=== PATIENT | male | born 1935 | race Caucasian/White ===

== ENCOUNTER 2016-12-07 21:40 | Inpatient (IN) | payer MEDICARE ==
[2016-12-07 21:59] LABS: % BASOPHILS 0.1 % (0.0-2.0); % EOSINOPHILS 0.4 % (0.0-5.0); % LYMPHOCYTES 4.9 % (20.0-50.0); % MONOCYTES 9.2 % (2.0-10.0); % NEUTROPHILS 85.4 % (40.0-80.0); HEMATOCRIT 41.3 % (39.0-49.0); HEMOGLOBIN 13.9 gm/dL (12.6-17.4); MEAN CELL VOLUME 91.7 fl (80-99); MEAN CORPUSCULAR HEMOGLOBIN 30.7 pg (27.0-31.0); MEAN CORPUSCULAR HGB CONC 33.5 pg (28.0-36.0); MEAN PLATELET VOLUME 9.9 fl; NEUTROPHILE ABSOLUTE 12.8 Th/cmm (1.8-8.0); PLATELET COUNT 324 Th/cmm (150-400); RED BLOOD COUNT 4.51 Mil/cmm (3.80-5.80); RED CELL DISTRIBUTION WIDTH 12.5 % (11.5-20.0)
[2016-12-07 22:14] LABS: INR 1.03 (0.5-1.4); PROTHROMBIN TIME (TEST) 10.7 SECONDS (9.5-11.5)
[2016-12-07 22:17] LABS: ALB/GLOB RATIO 0.9 (1.0-1.8); ALKALINE PHOSPHATASE 71 U/L (34-104); ANION GAP 10.4 (7.0-16.0); BILIRUBIN,TOTAL 0.9 mg/dL (0.3-1.0); BUN - UREA NITROGEN 36 mg/dL (7-25); BUN/CREATININE RATIO 32.7; CALCIUM SERUM 9.9 mg/dL (8.6-10.3); CARBON DIOXIDE 25.2 mEq/L (21.0-31.0); CHLORIDE 108 mEq/L (98-107); CHOLESTEROL 125 mg/dL (<200); CREATININE - SERUM 1.1 mg/dL (0.7-1.3); GLUCOSE 142 mg/dL (70-105); POTASSIUM SERUM 3.6 mEq/L (3.5-5.1); SGOT 20 U/L (13-39); SGPT/ALT 18 U/L (7-52); SODIUM SERUM 140 mEq/L (136-145); TRIGLYCERIDES 77 mg/dL (<150)
[2016-12-07] MEDS ORDERED: cefTRIAXone 1 GM in Sodium Chloride 0.9% 50 ML IV ONE (22:17)
--- NOTE | 2016-12-07 22:24 | ED Physician Chart ---
Chief Complaint/HPI - Patient Information Date Seen:: 12/07/16 Time Seen:: 21:45 Chief Complaint:: CONFUSED History of Present Illness:: THIS IS A CHRONICALLY ILL 81 YO MALE WITH FAILURE TO THRIVE AND FEVER INTERMITTENT PERIODS OF CONFUSION. HE IS DEMENTED WITH HYPERTENSION AND MELANOMA. HE IS ALSO COUGHING WITH CONGESTION. Allergies:: Allergies Allergy/AdvReac Type Severity Reaction Status Date / Time No Known Allergies Allergy Verified 12/07/16 21:52 Vitals:: Vital Signs - 8 hr 12/07/16 21:45 Temp 99 F HR 99 RR 18 BP 131/86 O2 Sat % 94 Historian:: Medical Records Review:: Nurse's Note Reviewed, Transfer documents Reviewed Review of Systems - Review of Systems General/Constitutional: No fever, No chills, No weight loss, No weakness, No diaphoresis, No edema, No loss of appetite, Other (THIS PATIENT CANNOT GIVE A REVIEW OF SYSTEMS) Skin: No skin lesions, No rash, No bruising Head: No headache, No light-headedness Eyes: No loss of vision, No pain, No diplopia ENT: No earache, No nasal drainage, No sore throat, No tinnitus Neck: No neck pain, No swelling, No thyromegaly, No stiffness, No mass noted Cardio Vascular: No chest pain, No palpitations, No PND, No orthopnea, No edema Pulmonary: No SOB, No cough, No sputum, No wheezing GI: No nausea, No vomiting, No diarrhea, No pain, No melena, No hematochezia, No constipation, No hematemesis G/U: No dysuria, No frequency, No hematuria Musculoskeletal: No bone or joint pain, No back pain, No muscle pain Endocrine: No polyuria, No polydipsia Psychiatric: No prior psych history, No depression, No anxiety, No suicidal ideation Hematopoietic: No bruising, No lymphadenopathy Allergic/Immuno: No urticaria, No angioedema Neurological: No syncope, No focal symptoms, No weakness, No paresthesia, No headache, No seizure, No dizziness, No confusion, No vertigo Past Medical History - Past Medical History Obtainable: Yes Past Medical History: HTN, Asthma/COPD, CVA/TIA, Dyslipidemia, Dementia Family History: None Social History: Non Smoker, No Alcohol, No Drug Use, Care Facility Surgical History: None Psychiatricy History: Depression, Schizophrenia Medication: Reviewed Family Medical History - Family Member Mother History Unknown: Yes Physical Exam - Physical Examination General/Constitutional: Well-developed, well-nourished, No distress, GCS 15, Non -toxic appearing, Ambulatory Other Gen/Cons comments:: THIS PATIENT IS CONFUSED AND DISORIENTED TIMES FOUR. Head: Atraumatic Eyes: Lids, conjuctiva normal, PERRL, EOMI Skin: Nl inspection, No rash, No skin lesions, No ecchymosis, Well hydrated, No lymphadenopathy ENMT: External ears, nose nl, Nasal exam nl, Lips, teeth, gums nl Neck: Nontender, Full ROM w/o pain, No JVD, No nuchal rigidity, No bruit, No mass, No stridor Respiratory: Nl effort/Exclusion, Clear to Auscultation Other Respiratory comments:: THERE ARE BILATERAL RHONCHITIS Cardio Vascular: RRR, No murmur, gallop, rubs, NL S1 S2 GI: No tenderness/rebounding/guarding, No organomegaly, No hernia, Normal BS's, Nondistended, No mass/bruits, No McBurney tenderness : No CVA tenderness Extremities: No tenderness or effusion, Full ROM, normal strength in all extremities, No edema, Normal digits & nails Neuro/Psych: Alert/oriented, DTR's symmetric, Normal sensory exam, Normal motor strength, Judgement/insight normal, Mood normal, Normal gait, No focal deficits Misc: normal gait, Normal back, No paraspinal tenderness Labs/Radiology/EKG Results - Lab Results Results: Laboratory Tests 12/07/16 12/07/16 21:53 21:53 WBC 15.0 H RBC 4.51 Hgb 13.9 Hct 41.3 MCV 91.7 MCH 30.7 MCHC Differential 33.5 RDW 12.5 Plt Count 324 MPV 9.9 Neutrophils % 85.4 H Lymphocytes % 4.9 L Monocytes % 9.2 Eosinophils % 0.4 Basophils % 0.1 PT 10.7 INR 1.03 - Radiology Results Results: CHEST X-RAY = INTERSTIAL PATCHES - EKG Interpretations EKG Time:: 22:34 Rate & Rhythm: RATE= 92 SINUS [place]: LEFT AXIS Assessment - Assessment General Assessment: LEUCOCYTOSIS FEVER CONFUSION ED Septic Shock - . Is Septic Shock (SBP<90, OR Lactate>4 mmol\L) present?: No - <6hrs of presentation: Vital Signs: Vital Signs - 8 hr 12/07/16 21:45 Temp 99 F HR 99 RR 18 BP 131/86 O2 Sat % 94 Reassessment (Disposition) - Reassessment Reassessment Condition:: Unchanged - Diagnosis Diagnosis:: PNUEMONIA CONFUSION FEVER - Patient Disposition Discharge/Transfer:: Acute Care w/in this hosp Admitted to:: Med/Surg Admitting Medical Physician:: Alan De La Cruz Condition at Disposition:: Unchanged ED Discharge Plan - Patient Disposition Admit/Discharge/Transfer: Acute Care w/in this hosp Condition at Disposition: Improved Instructions: Psychosis
[2016-12-07] MEDS ORDERED: Sodium Chloride 0.45% 500 ML IV ONE (22:35)
[2016-12-08] MEDS ORDERED: Vancomycin HCl 1.5 GM in Sodium Chloride 0.9% 500 ML IV ONE (03:00)
[2016-12-08] MEDS ORDERED: Piperacillin Sodium/Tazobact 3.375 gm Vial IV ONE (04:23)
[2016-12-08 04:40] VITALS: BP 159/92
[2016-12-08] MEDS: Albuterol/Ipratropium Neb 3 ML AERS HHN SCH ×3 (07:33→18:49)
[2016-12-08 07:37] LABS: HEMATOCRIT 39.4 % (39.0-49.0); HEMOGLOBIN 13.1 gm/dL (12.6-17.4); MEAN CELL VOLUME 91.6 fl (80-99); MEAN CORPUSCULAR HEMOGLOBIN 30.4 pg (27.0-31.0); MEAN CORPUSCULAR HGB CONC 33.1 pg (28.0-36.0); MEAN PLATELET VOLUME 10.1 fl; PLATELET COUNT 279 Th/cmm (150-400); RED CELL DISTRIBUTION WIDTH 12.7 % (11.5-20.0)
[2016-12-08 07:45] LABS: ALB/GLOB RATIO 0.8 (1.0-1.8); ALKALINE PHOSPHATASE 62 U/L (34-104); ANION GAP 7.2 (7.0-16.0); BILIRUBIN,TOTAL 0.7 mg/dL (0.3-1.0); BUN - UREA NITROGEN 30 mg/dL (7-25); BUN/CREATININE RATIO 27.3; CALCIUM SERUM 9.6 mg/dL (8.6-10.3); CARBON DIOXIDE 27.6 mEq/L (21.0-31.0); CHLORIDE 111 mEq/L (98-107); CREATININE - SERUM 1.1 mg/dL (0.7-1.3); GLUCOSE 113 mg/dL (70-105); POTASSIUM SERUM 3.8 mEq/L (3.5-5.1); SGOT 17 U/L (13-39); SGPT/ALT 14 U/L (7-52); SODIUM SERUM 142 mEq/L (136-145)
--- NOTE | 2016-12-08 08:42 | Diagnostic Imaging Report ---
CHEST X-RAY: AP view INDICATION: Congestion COMPARISON: None FINDINGS: Suboptimal lung volumes are seen with left basal density. Cardiomegaly is noted. Degenerative changes of the spine are noted. Postsurgical changes of the right lung apex or base of the neck on the right side is noted. IMPRESSION: Suboptimal lung volumes and left basal density. Atelectasis versus infiltrate of the left lung base cannot be excluded. Follow-up recommended. Cardiomegaly.
[2016-12-08 08:45] LABS: WHITE BLOOD COUNT 13.2 Th/cmm (4.8-10.8)
--- NOTE | 2016-12-08 09:27 | Diagnostic Imaging Report ---
CHEST X-RAY: AP view INDICATION: pneumonia COMPARISON: 12/07/2016 FINDINGS: Left basal increased lung markings are noted. There may be a trace left effusion. Borderline prominent heart is noted. IMPRESSION: Increased left basal lung markings favoring atelectasis versus less likely infiltrate. There may be a trace left effusion.
[2016-12-08 10:39] LABS: TOTAL CELLS COUNTED 100
[2016-12-08 10:41] LABS: NEUTROPHILS 82 % (40-80)
[2016-12-08 10:42] LABS: PLATELET ESTIMATE ADEQUATE (NORMAL); PLATELET MORPHOLOGY NORMAL (NORMAL)
[2016-12-08] MEDS ORDERED: VTE Chemical Prophylaxis Screen/Admission MC PRN (11:45)
[2016-12-08 13:56] LABS: URINE BILIRUBIN NEGATIVE (NEGATIVE); URINE BLOOD SMALL (NEGATIVE); URINE COLOR YELLOW; URINE GLUCOSE (UA) NEGATIVE (NEGATIVE); URINE KETONE NEGATIVE (NEGATIVE); URINE PROTEIN NEGATIVE (NEGATIVE)
[2016-12-08 13:57] LABS: URINE BACTERIA FEW /hpf (NONE SEEN); URINE EPITHELIAL CELLS RARE /lpf (FEW); URINE URIC ACID CRYSTALS FEW /hpf (NONE SEEN); URINE UROBILINOGEN 0.2 E.U./dL (0.2 - 1.0); URINE WBC 0-2 /hpf (0-5)
[2016-12-08] MEDS ORDERED: Albuterol/Ipratropium Neb 3 ML AERS HHN PRN (16:45)
[2016-12-08] MEDS: Azithromycin 500 MG in Sodium Chloride 0.9% 250 ML IV SCH (18:41)
--- NOTE | 2016-12-08 18:57 | History & Physical ---
ADMIT DATE: 12/08/2016 PATIENT IDENTIFICATION: An 81-year-old male. CHIEF COMPLAINT: Unable to obtain. HISTORY SOURCE: Reviewing the chart, talking to the Emergency Room MD. HISTORY OF PRESENT ILLNESS: This is an 81-year-old male who was admitted at [facility] on 12/03/2016 with a diagnosis of dementia, altered mental status and a fall. The patient was recently treated at [facility] for pneumonia as well. According to the Emergency Room MD, he was sent to ER for evaluation of confusion, disorientation and refused to eat and drink for 2 days. Upon my assessment, it is noted that the patient does provide a meaningful history at this time. The patient states that he is thirsty and he wants to eat and drink. The patient has some cough and congestion. The patient does have a history of hypertension and melanoma. The patient was taking medication at [facility], amlodipine for his hypertension. REVIEW OF SYSTEMS: The patient currently denies any fever or chills. Denies any headache. Denies any chest pain, denies any shortness of breath, denies any abdominal pain. Denies any nausea, vomiting, diarrhea, hematuria, hematochezia or melena. No history of any seizure or syncopal episode. PHYSICAL EXAMINATION: GENERAL: The patient is alert, awake, oriented, lying in the bed without any acute distress. VITAL SIGNS: Temperature 98.2, pulse is 80, respiratory rate 18, blood pressure 147/84. HEENT: Normocephalic, atraumatic. Extraocular muscles are intact. Tongue was pink and dry. Upper lip, black lesion noted. No facial asymmetry. NECK: Supple. Carotid endarterectomy scar on the right side noted. No JVD, no lymphadenopathy, thyromegaly. HEART: Both heart sounds are regular. No S3, no S4. CHEST AND LUNGS: Equal in expansion with mild expiratory wheezing. ABDOMEN: Soft. No guarding, no rigidity. Bowel sounds are present. No palpable mass. EXTREMITIES: No edema, no cyanosis. Peripheral pulses are +1. No calf tenderness. NEUROLOGIC: The patient is alert, awake, following commands, moving upper and lower extremity. The patient does epinephrine as of agitations. AVAILABLE DIAGNOSTIC DATA: White count of 15, hemoglobin of 13.9, platelet count of 1324, 85.4% neutrophils. PT and PTT are normal. Sodium 140, potassium 3.6, chloride 108, CO2 ____, BUN and creatinine is 36 and 1.0. Glucose of 142. Liver functions are normal. Albumin of 3.5. Urinalysis is small blood, otherwise negative. RPR was unremarkable. Chest x-ray performed in the Emergency Room, which is read by Radiologist as suboptimal volume, left basal density, atelectasis versus infiltrate of the left lung. EKG, no ST-T changes representing acute ischemia. CLINICAL IMPRESSIONS: 1. Cough, congestion, left lower lobe atelectasis versus infiltrate; recently treated for pneumonia at [facility]. The patient has dementia history. Though the patient gives me history, I am concerned about possible aspiration versus community acquired. The patient needs to be treated, since the patient is still having symptoms. 2. Agitations. Confusion and disorientation. The patient does have underlying dementia. I do believe the patient has encephalopathy, which is causing him to have irritation as well as disorientation. 3. Alzheimer's type dementia. 4. Hypertension. 5. Degenerative joint disease. 6. Peripheral vascular disease. 7. Prerenal azotemia. 8. Mild protein calorie malnutrition. 9. Recently treated for urinary tract infection as per patient's assigned nurse who talked to the patient's friend. PLAN: The patient is admitted at this time to the medical floor. I will give him hydration, will do swallow evaluation and treat the patient. Also give Zosyn and IV azithromycin for pneumonia, which includes aspiration, [facility] acquired as well as community acquired, blood cultures x 2, sputum Gram stain, C and S will be obtained. Psych consult was requested. appropriate home medicine will be reconciled. I will also get the CT chest for better evaluation of his left lower lobe atelectasis versus infiltrate. Since the patient has agitation, I will hold psychotropic medications and use Ativan p.r.n. and a one-to-one sitter. Followup lab will be requested and will follow program evaluation consultant's recommendations. Care plan has been reviewed and discussed with staff. JOB# [id number]
[2016-12-09 06:09] LABS: HEMATOCRIT 36.3 % (39.0-49.0); HEMOGLOBIN 12.4 gm/dL (12.6-17.4); MEAN CELL VOLUME 91.1 fl (80-99); MEAN PLATELET VOLUME 10.4 fl; PLATELET COUNT 285 Th/cmm (150-400); RED BLOOD COUNT 3.99 Mil/cmm (3.80-5.80); RED CELL DISTRIBUTION WIDTH 12.2 % (11.5-20.0); WHITE BLOOD COUNT 11.7 Th/cmm (4.8-10.8)
[2016-12-09 06:21] LABS: ALB/GLOB RATIO 0.9 (1.0-1.8); ALKALINE PHOSPHATASE 56 U/L (34-104); ANION GAP 8.9 (7.0-16.0); BILIRUBIN,TOTAL 0.7 mg/dL (0.3-1.0); BUN - UREA NITROGEN 21 mg/dL (7-25); CALCIUM SERUM 9.1 mg/dL (8.6-10.3); CARBON DIOXIDE 26.4 mEq/L (21.0-31.0); CHLORIDE 111 mEq/L (98-107); GLUCOSE 105 mg/dL (70-105); POTASSIUM SERUM 3.3 mEq/L (3.5-5.1); SGOT 15 U/L (13-39); SGPT/ALT 12 U/L (7-52); SODIUM SERUM 143 mEq/L (136-145)
[2016-12-09] MEDS: Albuterol/Ipratropium Neb 3 ML AERS HHN SCH ×3 (07:02→18:58)
[2016-12-09 07:16] LABS: BAND NEUTROPHILE 3 % (0-10); NEUTROPHILS 82 % (40-80); PLATELET ESTIMATE ADEQUATE (NORMAL); TOTAL CELLS COUNTED 100
[2016-12-09] MEDS: Azithromycin 500 MG in Sodium Chloride 0.9% 250 ML IV SCH (17:16)
[2016-12-10] MEDS: Albuterol/Ipratropium Neb 3 ML AERS HHN SCH ×4 (01:06→18:38)
--- NOTE | 2016-12-10 13:16 | General Progress Note ---
Subjective - Review of Systems Subjective: Patient is seen and examined. Patient is incontinence of urine. Patient is very alert and awake. I do see some period of agitation during my interview with him. I still think patient may get benefit with psych evaluation and possible geropsychiatric admission. Patient denies any chest pain, shortness of breath, palpitation, dizziness, nausea, vomiting, headache. Patient has not walked yet. Objective - Results Result Diagrams: 12/09/16 05:35 12/09/16 05:35 Recent Labs: Laboratory Last Values WBC 11.7 Th/cmm (4.8-10.8) H 12/09/16 05:35 RBC 3.99 Mil/cmm (3.80-5.80) 12/09/16 05:35 Hgb 12.4 gm/dL (12.6-17.4) L 12/09/16 05:35 Hct 36.3 % (39.0-49.0) L 12/09/16 05:35 MCV 91.1 fl (80-99) 12/09/16 05:35 MCH 31.0 pg (27.0-31.0) 12/09/16 05:35 MCHC Differential 34.0 pg (28.0-36.0) 12/09/16 05:35 RDW 12.2 % (11.5-20.0) 12/09/16 05:35 Plt Count 285 Th/cmm (150-400) 12/09/16 05:35 MPV 10.4 fl 12/09/16 05:35 Neutrophils % 85.4 % (40.0-80.0) H 12/07/16 21:53 Band Neutrophils % 3 % (0-10) 12/09/16 05:35 Lymphocytes % 4.9 % (20.0-50.0) L 12/07/16 21:53 Monocytes % 9.2 % (2.0-10.0) 12/07/16 21:53 Eosinophils % 0.4 % (0.0-5.0) 12/07/16 21:53 Basophils % 0.1 % (0.0-2.0) 12/07/16 21:53 Neutrophils (Manual) 82 % (40-80) H 12/09/16 05:35 Lymphocytes 6 % (20-50) L 12/09/16 05:35 Monocytes 9 % (2-10) 12/09/16 05:35 Platelet Estimate ADEQUATE (NORMAL) 12/09/16 05:35 Platelet Morphology NORMAL (NORMAL) 12/08/16 06:57 RBC Morph Micro Appear NORMAL (NORMAL) 12/08/16 06:57 PT 10.7 SECONDS (9.5-11.5) 12/07/16 21:53 INR 1.03 (0.5-1.4) 12/07/16 21:53 Sodium 143 mEq/L (136-145) 12/09/16 05:35 Potassium 3.3 mEq/L (3.5-5.1) L 12/09/16 05:35 Chloride 111 mEq/L (98-107) H 12/09/16 05:35 Carbon Dioxide 26.4 mEq/L (21.0-31.0) 12/09/16 05:35 Anion Gap 8.9 (7.0-16.0) 12/09/16 05:35 BUN 21 mg/dL (7-25) 12/09/16 05:35 Creatinine 1.0 mg/dL (0.7-1.3) 12/09/16 05:35 Est GFR ( Amer) TNP 12/09/16 05:35 Est GFR (Non-Af Amer) TNP 12/09/16 05:35 BUN/Creatinine Ratio 21.0 12/09/16 05:35 Glucose 105 mg/dL (70-105) 12/09/16 05:35 Whole Bld Lactic Acid 0.99 mmol/L (0.60-1.99) 12/07/16 21:53 Calcium 9.1 mg/dL (8.6-10.3) 12/09/16 05:35 Total Bilirubin 0.7 mg/dL (0.3-1.0) 12/09/16 05:35 AST 15 U/L (13-39) 12/09/16 05:35 ALT 12 U/L (7-52) 12/09/16 05:35 Alkaline Phosphatase 56 U/L (34-104) 12/09/16 05:35 Troponin I 0.03 ng/mL (0.01-0.05) 12/07/16 21:53 Total Protein 6.4 gm/dL (6.0-8.3) 12/09/16 05:35 Albumin 3.0 gm/dL (4.2-5.5) L 12/09/16 05:35 Globulin 3.4 gm/dL 12/09/16 05:35 Albumin/Globulin Ratio 0.9 (1.0-1.8) L 12/09/16 05:35 Triglycerides 77 mg/dL (<150) 12/07/16 21:53 Cholesterol 125 mg/dL (<200) 12/07/16 21:53 LDL Cholesterol Direct 89 mg/dL (75-193) 12/07/16 21:53 HDL Cholesterol 30 mg/dL (23-92) 12/07/16 21:53 TSH 1.38 uIU/ml (0.34-5.60) 12/07/16 21:53 Urine Source CLEAN C 12/08/16 13:30 Urine Color YELLOW 12/08/16 13:30 Urine Clarity CLEAR (CLEAR) 12/08/16 13:30 Urine pH 6.0 (4.6 - 8.0) 12/08/16 13:30 Ur Specific [place] 1.025 (1.005-1.030) 12/08/16 13:30 Urine Protein NEGATIVE mg/dL (NEGATIVE) 12/08/16 13:30 Urine Glucose (UA) NEGATIVE mg/dL (NEGATIVE) 12/08/16 13:30 Urine Ketones NEGATIVE mg/dL (NEGATIVE) 12/08/16 13:30 Urine Blood SMALL (NEGATIVE) H 12/08/16 13:30 Urine Nitrate NEGATIVE (NEGATIVE) 12/08/16 13:30 Urine Bilirubin NEGATIVE (NEGATIVE) 12/08/16 13:30 Urine Urobilinogen 0.2 E.U./dL (0.2 - 1.0) 12/08/16 13:30 Ur Leukocyte Esterase NEGATIVE (NEGATIVE) 12/08/16 13:30 Urine RBC 2-5 /hpf (0-5) H 12/08/16 13:30 Urine WBC 0-2 /hpf (0-5) 12/08/16 13:30 Ur Epithelial Cells RARE /lpf (FEW) 12/08/16 13:30 Uric Acid Crystals FEW /hpf (NONE SEEN) 12/08/16 13:30 Urine Bacteria FEW /hpf (NONE SEEN) 12/08/16 13:30 RPR NONREACTIVE (NONREACTIVE) 12/07/16 21:53 - Physical Exam Vitals and I&O: Vital Signs Temp 97.3 F 12/10/16 12:00 Pulse 65 12/10/16 12:26 Resp 16 12/10/16 12:26 BP 150/68 12/10/16 12:00 Pulse Ox 95 12/10/16 12:26 Intake & Output 12/09/16 12/10/16 12/10/16 18:59 06:59 18:59 Intake Total 1900 100 Balance 1900 100 Weight (lbs) 76.884 kg 77.428 kg Intake: Intake, IV Amount 50 100 Piperacillin Sodium/ 50 100 Tazobact 3.375 gm In Sodium Chloride 0.9% 50 ml @ 100 mls/hr IV Q8HR [facility] Rx#:[id number] Oral 1850 Other: # Voids 4 2 # Bowel Movements 1 1 Stool Characteristics Soft Formed Active Medications: Current Medications Albuterol/Ipratropium (Duoneb Neb) 3 ml HHN Q6HRT [facility] Stop: 02/06/17 06:59 Last Admin: 12/10/16 12:19 Dose: 3 ml Albuterol/Ipratropium (Duoneb Neb) 3 ml HHN Q2H PRN PRN Reason: Wheezing Stop: 02/06/17 16:44 Amlodipine Besylate (Norvasc) 10 mg PO DAILY [facility] Stop: 02/07/17 08:59 Last Admin: 12/10/16 08:30 Dose: 10 mg Heparin Sodium (Porcine) (Heparin) 5,000 units SUBQ Q12HR [facility] Stop: 02/06/17 20:59 Last Admin: 12/10/16 08:30 Dose: 5,000 units Piperacillin Sod/Tazobactam (Sod 3.375 gm/ Sodium Chloride) 50 mls @ 100 mls/ hr IV Q8HR [facility] Stop: 02/06/17 01:54 Last Admin: 12/10/16 12:28 Dose: 100 mls/hr Azithromycin 500 mg/ Sodium (Chloride) 250 mls @ 250 mls/hr IV Q24HR [facility] Stop: 02/06/17 17:29 Last Admin: 12/09/16 17:16 Dose: 250 mls/hr Lorazepam (Ativan) 2 mg IVP Q4HR PRN; Protocol PRN Reason: Agitation Stop: 02/06/17 16:41 Miscellaneous (Vte Chemical Prophylaxis Screen/ Admission) 1 ea PRN PRN PRN Reason: PROTOCOL Stop: 02/06/17 11:44 General: Alert, Cooperative, No acute distress HEENT: Atraumatic, PERRLA, EOMI, Mucous membr. moist/pink Neck: Supple, Other (no JVD, thyromegaly, lymphadenopathy.) Cardiovascular: Regular rate, Normal S1, Normal S2 Lungs: Clear to auscultation Abdomen: Bowel sounds, Soft, Other (no guarding, rigidity, hepatosplenomegaly.) Extremities: Pulses (+1) Neurological: Other (broadbase gait noted.) Assessment/Plan - Assessment Assessment: Most likely underlying Alzheimer's dementia. Left lower lobe pneumonia. Hypertension. Diffuse DJD. High risk for fall. Debility. History of CVA. Altered mental status secondary to encephalopathy improved. - Plan Plan: Start PT OT. IV antibiotic. Await psych input. Follow-up precautions. General nursing care. Nutritional support. Continue current medication as ordered. Care plan reviewed and discussed with staff.
[2016-12-10] MEDS: Azithromycin 500 MG in Sodium Chloride 0.9% 250 ML IV SCH (16:30)
[2016-12-11] MEDS: Albuterol/Ipratropium Neb 3 ML AERS HHN SCH ×8 (00:26→18:54)
[2016-12-11 06:07] LABS: % BASOPHILS 0.5 % (0.0-2.0); % EOSINOPHILS 3.2 % (0.0-5.0); % LYMPHOCYTES 11.2 % (20.0-50.0); % MONOCYTES 11.5 % (2.0-10.0); % NEUTROPHILS 73.6 % (40.0-80.0); HEMATOCRIT 36.6 % (39.0-49.0); HEMOGLOBIN 12.1 gm/dL (12.6-17.4); MEAN CELL VOLUME 91.1 fl (80-99); MEAN CORPUSCULAR HEMOGLOBIN 30.2 pg (27.0-31.0); MEAN CORPUSCULAR HGB CONC 33.1 pg (28.0-36.0); MEAN PLATELET VOLUME 9.8 fl; NEUTROPHILE ABSOLUTE 6.7 Th/cmm (1.8-8.0); PLATELET COUNT 289 Th/cmm (150-400); RED BLOOD COUNT 4.02 Mil/cmm (3.80-5.80); RED CELL DISTRIBUTION WIDTH 12.2 % (11.5-20.0)
[2016-12-11 06:38] LABS: ALB/GLOB RATIO 0.8 (1.0-1.8); ALKALINE PHOSPHATASE 61 U/L (34-104); ANION GAP 7.8 (7.0-16.0); BILIRUBIN,TOTAL 0.5 mg/dL (0.3-1.0); BUN - UREA NITROGEN 11 mg/dL (7-25); CALCIUM SERUM 9.1 mg/dL (8.6-10.3); CARBON DIOXIDE 26.5 mEq/L (21.0-31.0); CHLORIDE 105 mEq/L (98-107); GLUCOSE 103 mg/dL (70-105); POTASSIUM SERUM 3.3 mEq/L (3.5-5.1); SGOT 16 U/L (13-39); SGPT/ALT 10 U/L (7-52); SODIUM SERUM 136 mEq/L (136-145)
--- NOTE | 2016-12-11 09:15 | General Progress Note ---
Subjective - Review of Systems Subjective: Patient is seen and examined. Patient denies any chest pain, shortness of breath, palpitation, dizziness, nausea, vomiting. She knows he was admitted at [place] followed by [facility]. Patient is not seen by psychiatrist yet. Objective - Results Result Diagrams: 12/11/16 06:00 12/11/16 06:00 Recent Labs: Laboratory Last Values WBC 9.0 Th/cmm (4.8-10.8) D 12/11/16 06:00 RBC 4.02 Mil/cmm (3.80-5.80) 12/11/16 06:00 Hgb 12.1 gm/dL (12.6-17.4) L 12/11/16 06:00 Hct 36.6 % (39.0-49.0) L 12/11/16 06:00 MCV 91.1 fl (80-99) 12/11/16 06:00 MCH 30.2 pg (27.0-31.0) 12/11/16 06:00 MCHC Differential 33.1 pg (28.0-36.0) 12/11/16 06:00 RDW 12.2 % (11.5-20.0) 12/11/16 06:00 Plt Count 289 Th/cmm (150-400) 12/11/16 06:00 MPV 9.8 fl 12/11/16 06:00 Neutrophils % 73.6 % (40.0-80.0) 12/11/16 06:00 Band Neutrophils % 3 % (0-10) 12/09/16 05:35 Lymphocytes % 11.2 % (20.0-50.0) L 12/11/16 06:00 Monocytes % 11.5 % (2.0-10.0) H 12/11/16 06:00 Eosinophils % 3.2 % (0.0-5.0) 12/11/16 06:00 Basophils % 0.5 % (0.0-2.0) 12/11/16 06:00 Neutrophils (Manual) 82 % (40-80) H 12/09/16 05:35 Lymphocytes 6 % (20-50) L 12/09/16 05:35 Monocytes 9 % (2-10) 12/09/16 05:35 Platelet Estimate ADEQUATE (NORMAL) 12/09/16 05:35 Platelet Morphology NORMAL (NORMAL) 12/08/16 06:57 RBC Morph Micro Appear NORMAL (NORMAL) 12/08/16 06:57 PT 10.7 SECONDS (9.5-11.5) 12/07/16 21:53 INR 1.03 (0.5-1.4) 12/07/16 21:53 Sodium 136 mEq/L (136-145) 12/11/16 06:00 Potassium 3.3 mEq/L (3.5-5.1) L 12/11/16 06:00 Chloride 105 mEq/L (98-107) 12/11/16 06:00 Carbon Dioxide 26.5 mEq/L (21.0-31.0) 12/11/16 06:00 Anion Gap 7.8 (7.0-16.0) 12/11/16 06:00 BUN 11 mg/dL (7-25) 12/11/16 06:00 Creatinine 1.0 mg/dL (0.7-1.3) 12/11/16 06:00 Est GFR ( Amer) TNP 12/11/16 06:00 Est GFR (Non-Af Amer) TNP 12/11/16 06:00 BUN/Creatinine Ratio 11.0 12/11/16 06:00 Glucose 103 mg/dL (70-105) 12/11/16 06:00 Whole Bld Lactic Acid 0.99 mmol/L (0.60-1.99) 12/07/16 21:53 Calcium 9.1 mg/dL (8.6-10.3) 12/11/16 06:00 Total Bilirubin 0.5 mg/dL (0.3-1.0) 12/11/16 06:00 AST 16 U/L (13-39) 12/11/16 06:00 ALT 10 U/L (7-52) 12/11/16 06:00 Alkaline Phosphatase 61 U/L (34-104) 12/11/16 06:00 Troponin I 0.03 ng/mL (0.01-0.05) 12/07/16 21:53 Total Protein 6.4 gm/dL (6.0-8.3) 12/11/16 06:00 Albumin 2.9 gm/dL (4.2-5.5) L 12/11/16 06:00 Globulin 3.5 gm/dL 12/11/16 06:00 Albumin/Globulin Ratio 0.8 (1.0-1.8) L 12/11/16 06:00 Triglycerides 77 mg/dL (<150) 12/07/16 21:53 Cholesterol 125 mg/dL (<200) 12/07/16 21:53 LDL Cholesterol Direct 89 mg/dL (75-193) 12/07/16 21:53 HDL Cholesterol 30 mg/dL (23-92) 12/07/16 21:53 TSH 1.38 uIU/ml (0.34-5.60) 12/07/16 21:53 Urine Source CLEAN C 12/08/16 13:30 Urine Color YELLOW 12/08/16 13:30 Urine Clarity CLEAR (CLEAR) 12/08/16 13:30 Urine pH 6.0 (4.6 - 8.0) 12/08/16 13:30 Ur Specific [place] 1.025 (1.005-1.030) 12/08/16 13:30 Urine Protein NEGATIVE mg/dL (NEGATIVE) 12/08/16 13:30 Urine Glucose (UA) NEGATIVE mg/dL (NEGATIVE) 12/08/16 13:30 Urine Ketones NEGATIVE mg/dL (NEGATIVE) 12/08/16 13:30 Urine Blood SMALL (NEGATIVE) H 12/08/16 13:30 Urine Nitrate NEGATIVE (NEGATIVE) 12/08/16 13:30 Urine Bilirubin NEGATIVE (NEGATIVE) 12/08/16 13:30 Urine Urobilinogen 0.2 E.U./dL (0.2 - 1.0) 12/08/16 13:30 Ur Leukocyte Esterase NEGATIVE (NEGATIVE) 12/08/16 13:30 Urine RBC 2-5 /hpf (0-5) H 12/08/16 13:30 Urine WBC 0-2 /hpf (0-5) 12/08/16 13:30 Ur Epithelial Cells RARE /lpf (FEW) 12/08/16 13:30 Uric Acid Crystals FEW /hpf (NONE SEEN) 12/08/16 13:30 Urine Bacteria FEW /hpf (NONE SEEN) 12/08/16 13:30 RPR NONREACTIVE (NONREACTIVE) 12/07/16 21:53 - Physical Exam Vitals and I&O: Vital Signs Temp 97.6 F 12/11/16 04:00 Pulse 74 12/11/16 08:24 Resp 18 12/11/16 08:05 BP 155/72 12/11/16 08:24 Pulse Ox 96 12/11/16 08:05 Intake & Output 12/10/16 12/11/16 12/11/16 18:59 06:59 18:59 Intake Total 300 290 Balance 300 290 Weight (lbs) 78.698 kg Intake: Intake, IV Amount 300 50 Azithromycin 500 mg In 250 Sodium Chloride 0.9% 250 ml @ 250 mls/hr IV Q24HR [facility] Rx#:[id number] Piperacillin Sodium/ 50 50 Tazobact 3.375 gm In Sodium Chloride 0.9% 50 ml @ 100 mls/hr IV Q8HR [facility] Rx#:[id number] Oral 240 Other: # Voids 4 # Bowel Movements 0 Active Medications: Current Medications Albuterol/Ipratropium (Duoneb Neb) 3 ml HHN Q6HRT [facility] Stop: 02/06/17 06:59 Last Admin: 12/11/16 08:05 Dose: 3 ml Albuterol/Ipratropium (Duoneb Neb) 3 ml HHN Q2H PRN PRN Reason: Wheezing Stop: 02/06/17 16:44 Amlodipine Besylate (Norvasc) 10 mg PO DAILY [facility] Stop: 02/07/17 08:59 Last Admin: 12/11/16 08:24 Dose: 10 mg Heparin Sodium (Porcine) (Heparin) 5,000 units SUBQ Q12HR [facility] Stop: 02/06/17 20:59 Last Admin: 12/11/16 08:24 Dose: 5,000 units Piperacillin Sod/Tazobactam (Sod 3.375 gm/ Sodium Chloride) 50 mls @ 100 mls/ hr IV Q8HR [facility] Stop: 02/06/17 01:54 Last Admin: 12/11/16 05:28 Dose: 100 mls/hr Azithromycin 500 mg/ Sodium (Chloride) 250 mls @ 250 mls/hr IV Q24HR [facility] Stop: 02/06/17 17:29 Last Infusion: 12/10/16 18:20 Dose: Infused Lorazepam (Ativan) 2 mg IVP Q4HR PRN; Protocol PRN Reason: Agitation Stop: 02/06/17 16:41 Miscellaneous (Vte Chemical Prophylaxis Screen/ Admission) 1 ea PRN PRN PRN Reason: PROTOCOL Stop: 02/06/17 11:44 General: Alert, Cooperative, No acute distress HEENT: Atraumatic, PERRLA, EOMI, Mucous membr. moist/pink Neck: Supple Cardiovascular: Regular rate, Normal S1, Normal S2 Lungs: Clear to auscultation Abdomen: Bowel sounds, Soft, Other (no guarding, rigidity, hepatosplenomegaly.) Extremities: Pulses (+1) Neurological: Other (broadbase gait noted.) Assessment/Plan - Assessment Assessment: Most likely underlying Alzheimer's dementia. Left lower lobe pneumonia. Hypertension. Diffuse DJD. High risk for fall. Debility. History of CVA. Altered mental status secondary to encephalopathy improved. - Plan Plan: Start PT OT. IV antibiotic. Once patient is seen by psychiatrist DC planning based on this season inpatient versus back to alf. Fall precautions. General nursing care. Nutritional support. Follow-up lab. Continue current medication as ordered. Care plan reviewed and discussed with staff.
[2016-12-11] MEDS ORDERED: Probiotic Screen MC PRN (17:19)
[2016-12-11] MEDS: Azithromycin 500 MG in Sodium Chloride 0.9% 250 ML IV SCH (18:33)
--- NOTE | 2016-12-11 19:43 | Consultation ---
DATE OF CONSULTATION: 12/11/2016 HISTORY OF PRESENT ILLNESS: This is an 81-year-old male admitted at [facility] with dementia, altered. On [id number], the patient is rambling nonsensically, AO to name only, does not know where he is or what is going on. He has been refusing to eat and drink. The patient is nonsensical, talking about many different topics. PAST PSYCHIATRIC HISTORY: Dementia. FAMILY HISTORY: Unclear. SOCIAL HISTORY: Born in [place], for many years, one child, one grandson. Denies history of drugs, alcohol, or tobacco. 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 MENTAL STATUS EXAMINATION: Stated age. Fair eye contact. Speech within normal limits, but rambling nonsensically. Mood "fine." Affect constricted. Thought processes were disoriented. No SI, no HI, no overt psychotic symptoms. Poor insight, poor judgment, and poor impulse control. PROVISIONAL DIAGNOSIS: Dementia, also anxiety, unspecified. MEDICAL DIAGNOSIS: Please see full H and P. RECOMMENDATIONS AND PLAN: Recommended Aricept and recommended Namenda. The patient may benefit from further psychiatric stabilization. JOB# [id number]
[2016-12-12] MEDS: Albuterol/Ipratropium Neb 3 ML AERS HHN SCH ×5 (00:23→19:55)
--- NOTE | 2016-12-12 09:15 | Diagnostic Imaging Report ---
Exam: CT examination of chest. HISTORY: Shortness of breath. Total DLP equals 200 CTDI equals 6.2 Findings: Multiple contiguous thin section of the chest were obtained from thoracic outlet to the upper abdomen without the administration of contrast material, therefore the study somewhat limited. The study demonstrates normal appearance of the great vessels of the neck. No abnormal adenopathy is noted. Mediastinal structures midline the heart is prominent. Calcification aortic arch appreciated. No abnormal adenopathy appreciated but difficult to visualize without contrast material The right lung parenchyma is well aerated. There is evidence of pleural thickening bilaterally with ill-defined small soft tissue density in the left lung base this might represent consolidation pneumonia or atelectasis. Follow-up exam is recommended with contrast material. IMPRESSION: Most likely left basilar infiltrate with superimposed atelectasis. Follow-up examination recommended.
[2016-12-12] MEDS: Lactobacillus Rhamnosus 10 Billion CFU Capsule PO SCH (09:29)
--- NOTE | 2016-12-12 10:01 | General Progress Note ---
Subjective - Review of Systems Subjective: Patient is seen and examined. Patient denies any chest pain, shortness of breath, palpitation, dizziness, nausea, vomiting. Patient is participating in physical therapy. Psychiatrist input noted. Patient denies any fever, chills, loss of appetite, weight loss. Objective - Results Result Diagrams: 12/11/16 06:00 12/11/16 06:00 Recent Labs: Laboratory Last Values WBC 9.0 Th/cmm (4.8-10.8) D 12/11/16 06:00 RBC 4.02 Mil/cmm (3.80-5.80) 12/11/16 06:00 Hgb 12.1 gm/dL (12.6-17.4) L 12/11/16 06:00 Hct 36.6 % (39.0-49.0) L 12/11/16 06:00 MCV 91.1 fl (80-99) 12/11/16 06:00 MCH 30.2 pg (27.0-31.0) 12/11/16 06:00 MCHC Differential 33.1 pg (28.0-36.0) 12/11/16 06:00 RDW 12.2 % (11.5-20.0) 12/11/16 06:00 Plt Count 289 Th/cmm (150-400) 12/11/16 06:00 MPV 9.8 fl 12/11/16 06:00 Neutrophils % 73.6 % (40.0-80.0) 12/11/16 06:00 Band Neutrophils % 3 % (0-10) 12/09/16 05:35 Lymphocytes % 11.2 % (20.0-50.0) L 12/11/16 06:00 Monocytes % 11.5 % (2.0-10.0) H 12/11/16 06:00 Eosinophils % 3.2 % (0.0-5.0) 12/11/16 06:00 Basophils % 0.5 % (0.0-2.0) 12/11/16 06:00 Neutrophils (Manual) 82 % (40-80) H 12/09/16 05:35 Lymphocytes 6 % (20-50) L 12/09/16 05:35 Monocytes 9 % (2-10) 12/09/16 05:35 Platelet Estimate ADEQUATE (NORMAL) 12/09/16 05:35 Platelet Morphology NORMAL (NORMAL) 12/08/16 06:57 RBC Morph Micro Appear NORMAL (NORMAL) 12/08/16 06:57 PT 10.7 SECONDS (9.5-11.5) 12/07/16 21:53 INR 1.03 (0.5-1.4) 12/07/16 21:53 Sodium 136 mEq/L (136-145) 12/11/16 06:00 Potassium 3.3 mEq/L (3.5-5.1) L 12/11/16 06:00 Chloride 105 mEq/L (98-107) 12/11/16 06:00 Carbon Dioxide 26.5 mEq/L (21.0-31.0) 12/11/16 06:00 Anion Gap 7.8 (7.0-16.0) 12/11/16 06:00 BUN 11 mg/dL (7-25) 12/11/16 06:00 Creatinine 1.0 mg/dL (0.7-1.3) 12/11/16 06:00 Est GFR ( Amer) TNP 12/11/16 06:00 Est GFR (Non-Af Amer) TNP 12/11/16 06:00 BUN/Creatinine Ratio 11.0 12/11/16 06:00 Glucose 103 mg/dL (70-105) 12/11/16 06:00 Whole Bld Lactic Acid 0.99 mmol/L (0.60-1.99) 12/07/16 21:53 Calcium 9.1 mg/dL (8.6-10.3) 12/11/16 06:00 Total Bilirubin 0.5 mg/dL (0.3-1.0) 12/11/16 06:00 AST 16 U/L (13-39) 12/11/16 06:00 ALT 10 U/L (7-52) 12/11/16 06:00 Alkaline Phosphatase 61 U/L (34-104) 12/11/16 06:00 Troponin I 0.03 ng/mL (0.01-0.05) 12/07/16 21:53 Total Protein 6.4 gm/dL (6.0-8.3) 12/11/16 06:00 Albumin 2.9 gm/dL (4.2-5.5) L 12/11/16 06:00 Globulin 3.5 gm/dL 12/11/16 06:00 Albumin/Globulin Ratio 0.8 (1.0-1.8) L 12/11/16 06:00 Triglycerides 77 mg/dL (<150) 12/07/16 21:53 Cholesterol 125 mg/dL (<200) 12/07/16 21:53 LDL Cholesterol Direct 89 mg/dL (75-193) 12/07/16 21:53 HDL Cholesterol 30 mg/dL (23-92) 12/07/16 21:53 TSH 1.38 uIU/ml (0.34-5.60) 12/07/16 21:53 Urine Source CLEAN C 12/08/16 13:30 Urine Color YELLOW 12/08/16 13:30 Urine Clarity CLEAR (CLEAR) 12/08/16 13:30 Urine pH 6.0 (4.6 - 8.0) 12/08/16 13:30 Ur Specific [place] 1.025 (1.005-1.030) 12/08/16 13:30 Urine Protein NEGATIVE mg/dL (NEGATIVE) 12/08/16 13:30 Urine Glucose (UA) NEGATIVE mg/dL (NEGATIVE) 12/08/16 13:30 Urine Ketones NEGATIVE mg/dL (NEGATIVE) 12/08/16 13:30 Urine Blood SMALL (NEGATIVE) H 12/08/16 13:30 Urine Nitrate NEGATIVE (NEGATIVE) 12/08/16 13:30 Urine Bilirubin NEGATIVE (NEGATIVE) 12/08/16 13:30 Urine Urobilinogen 0.2 E.U./dL (0.2 - 1.0) 12/08/16 13:30 Ur Leukocyte Esterase NEGATIVE (NEGATIVE) 12/08/16 13:30 Urine RBC 2-5 /hpf (0-5) H 12/08/16 13:30 Urine WBC 0-2 /hpf (0-5) 12/08/16 13:30 Ur Epithelial Cells RARE /lpf (FEW) 12/08/16 13:30 Uric Acid Crystals FEW /hpf (NONE SEEN) 12/08/16 13:30 Urine Bacteria FEW /hpf (NONE SEEN) 12/08/16 13:30 RPR NONREACTIVE (NONREACTIVE) 12/07/16 21:53 - Physical Exam Vitals and I&O: Vital Signs Temp 97 F 12/12/16 04:00 Pulse 78 12/12/16 07:18 Resp 16 12/12/16 07:19 BP 151/85 12/12/16 04:00 Pulse Ox 98 12/12/16 07:18 Intake & Output 12/11/16 12/12/16 12/12/16 18:59 06:59 18:59 Intake Total 66.667 533.333 Balance 66.667 533.333 Weight (lbs) 78.698 kg Intake: Intake, IV Amount 66.667 333.333 Azithromycin 500 mg In 16.667 233.333 Sodium Chloride 0.9% 250 ml @ 250 mls/hr IV Q24HR [facility] Rx#:[id number] Piperacillin Sodium/ 50 100 Tazobact 3.375 gm In Sodium Chloride 0.9% 50 ml @ 100 mls/hr IV Q8HR [facility] Rx#:[id number] Oral 200 Other: # Voids 2 Active Medications: Current Medications Albuterol/Ipratropium (Duoneb Neb) 3 ml HHN Q6HRT [facility] Stop: 02/06/17 06:59 Last Admin: 12/12/16 07:16 Dose: 3 ml Albuterol/Ipratropium (Duoneb Neb) 3 ml HHN Q2H PRN PRN Reason: Wheezing Stop: 02/06/17 16:44 Amlodipine Besylate (Norvasc) 10 mg PO DAILY [facility] Stop: 02/07/17 08:59 Last Admin: 12/11/16 08:24 Dose: 10 mg Donepezil HCl (Aricept) 5 mg PO HS [facility] Stop: 02/09/17 20:59 Last Admin: 12/11/16 20:10 Dose: 5 mg Heparin Sodium (Porcine) (Heparin) 5,000 units SUBQ Q12HR [facility] Stop: 02/06/17 20:59 Last Admin: 12/11/16 20:11 Dose: 5,000 units Piperacillin Sod/Tazobactam (Sod 3.375 gm/ Sodium Chloride) 50 mls @ 100 mls/ hr IV Q8HR [facility] Stop: 02/06/17 01:54 Last Infusion: 12/12/16 05:18 Dose: Infused Azithromycin 500 mg/ Sodium (Chloride) 250 mls @ 250 mls/hr IV Q24HR [facility] Stop: 02/06/17 17:29 Last Infusion: 12/11/16 19:33 Dose: Infused Lactobacillus Rhamnosus (Culturelle) 1 each PO DAILY [facility] Stop: 02/10/17 08:59 Lorazepam (Ativan) 1 mg IVP Q4H PRN; Protocol PRN Reason: Agitation Stop: 02/09/17 16:12 Memantine (Namenda) 5 mg PO DAILY [facility] Stop: 02/10/17 08:59 Miscellaneous (Vte Chemical Prophylaxis Screen/ Admission) 1 ea [facility] PRN PRN PRN Reason: PROTOCOL Stop: 02/06/17 11:44 Miscellaneous (Probiotic Screen) 1 ea [facility] PRN PRN PRN Reason: PROTOCOL Stop: 02/09/17 17:18 Quetiapine Fumarate (Seroquel) 25 mg PO Q6HR PRN; Protocol PRN Reason: Agitation Stop: 02/09/17 17:59 General: Alert, Cooperative, No acute distress HEENT: Atraumatic, PERRLA, EOMI, Mucous membr. moist/pink Neck: Supple Cardiovascular: Regular rate, Normal S1, Normal S2 Lungs: Clear to auscultation Abdomen: Bowel sounds, Soft, Other (no guarding, no rigidity, no hepatosplenomegaly.) Extremities: Pulses (+1) Neurological: Other (broadbase gait noted.) Assessment/Plan - Assessment Assessment: Most likely underlying Alzheimer's dementia. Left lower lobe pneumonia clinically improving. Hypertension. Diffuse DJD. High risk for fall. Debility. History of CVA. Encephalopathy improved. - Plan Plan: Await psychiatrist's input regarding inpatient psych admission. Continue IV antibiotic. CT chest still pending. Continue antihypertensive medication as ordered. Fall precautions. General nursing care. Antihypertensive medication. Nutritional support. PT and OT. Care plan reviewed and discussed with staff.
[2016-12-12] MEDS: Azithromycin 500 MG in Sodium Chloride 0.9% 250 ML IV SCH (17:22)
[2016-12-13] MEDS: Albuterol/Ipratropium Neb 3 ML AERS HHN SCH ×4 (01:23→19:33)
--- NOTE | 2016-12-13 02:48 | Admit Criteria Form ---
Admit Criteria Forms - Admit Criteria Diagnosis: PNEUMONIA, COMMUNITY ACQUIRED Clinical Indications for Admission to Inpatient Care (Place ' X' for any and all applicable criteria): Admission to inpatient status for two midnights or more is indicated for ANY ONE of the following (1)(2)(3): [ ]I. Hypoxia [ ]II. Hemodynamic instability [ ]III. Altered mental status that is severe or persistent [ ]IV. Dehydration that is severe or persistent. [ ]V. Bacteremia [X ]. Moderate-risk or high-risk category patients (Pneumonia Severity Index ( PSI) class IV or V, or CURB-65 score of 3 or greater). [ ]VII. Intermediate-risk category patients (e.g., PSI class III or CURB-65 score 2) who do not improve with outpatient and observation care treatment [ ]VIII. Outpatient treatment failure as indicated by 1 or more of the following(9): [ ]a) Failure to respond to antibiotic (eg, resistant organism) [ ]b) Clinically significant adverse effects from medication (eg, vomiting) [ ]c) Complications of pneumonia (eg, empyema, bacteremia) [ ]d) Significant worsening of comorbid cond necessitating inpatient care (eg, chronic heart failure) [ ]IX. Appropriate diagnostic testing and treatment unavailable in outpatient or recovery facility (eg, testing or infection control measures unavailable) [ ]X. Respiratory finding (eg. tachypnea) that do not respond to outpatient observation care treatment [ ]XI. Complicated pleural effusions (eg, emphysema, exudative, loculated) [ ]XII. Immunocompromised patients (e.g., AIDS, chronic steroid use) at moderate or high risk based on clinical evaluation. Extended stay beyond goal length of stay may be needed for (20) [ ]a) Unclear diagnosis [ ]b) Pleural disease [ ]c) Severe pneumonia or treatment failure [ ]d) Respiratory failure [ ]e) New onset hyponatremia (serum Na concentration less than 135 mEq/L(mmol/ L) [ ]f) Clinically significant comorbid illness (eg, heart failure, atrial fibrillation with rapid heart rate, alcohol withdrawal, renal insufficiency)(34)(35) [ ]g) Comorbid acute exacerbation of COPD(36) [ ]h) Concomitant diagnosis of malignancy [ ]i) Concomitant altered mental status [ ]j) Culture-identified Gram-negative or antibiotic-resistant organism (eg, Pseudomonas, methicillin-resistant Staphylococcus aureus MRSA)(30) [ ]k) Healthcare-associated pneumonia (36) The original [facility] content created by [facility] has been revised. The portions of the content which have been revised are identified through the use of italic text or in bold, and [facility] has neither reviewed nor approved the modified material. All other unmodified content is copyright [facility]. Please see references footnoted in the original [facility] edition 2017 Admit Criteria Met?: Yes
--- NOTE | 2016-12-13 09:08 | General Progress Note ---
Subjective - Review of Systems Subjective: Patient is seen and examined. Patient denies any chest pain, shortness of breath, palpitation, dizziness, nausea, vomiting. Patient is participating in physical therapy. Patient denies any fever, chills, loss of appetite, weight loss. Discharge planning based on psychiatrist input. Objective - Results Result Diagrams: 12/11/16 06:00 12/11/16 06:00 Recent Labs: Laboratory Last Values WBC 9.0 Th/cmm (4.8-10.8) D 12/11/16 06:00 RBC 4.02 Mil/cmm (3.80-5.80) 12/11/16 06:00 Hgb 12.1 gm/dL (12.6-17.4) L 12/11/16 06:00 Hct 36.6 % (39.0-49.0) L 12/11/16 06:00 MCV 91.1 fl (80-99) 12/11/16 06:00 MCH 30.2 pg (27.0-31.0) 12/11/16 06:00 MCHC Differential 33.1 pg (28.0-36.0) 12/11/16 06:00 RDW 12.2 % (11.5-20.0) 12/11/16 06:00 Plt Count 289 Th/cmm (150-400) 12/11/16 06:00 MPV 9.8 fl 12/11/16 06:00 Neutrophils % 73.6 % (40.0-80.0) 12/11/16 06:00 Band Neutrophils % 3 % (0-10) 12/09/16 05:35 Lymphocytes % 11.2 % (20.0-50.0) L 12/11/16 06:00 Monocytes % 11.5 % (2.0-10.0) H 12/11/16 06:00 Eosinophils % 3.2 % (0.0-5.0) 12/11/16 06:00 Basophils % 0.5 % (0.0-2.0) 12/11/16 06:00 Neutrophils (Manual) 82 % (40-80) H 12/09/16 05:35 Lymphocytes 6 % (20-50) L 12/09/16 05:35 Monocytes 9 % (2-10) 12/09/16 05:35 Platelet Estimate ADEQUATE (NORMAL) 12/09/16 05:35 Platelet Morphology NORMAL (NORMAL) 12/08/16 06:57 RBC Morph Micro Appear NORMAL (NORMAL) 12/08/16 06:57 PT 10.7 SECONDS (9.5-11.5) 12/07/16 21:53 INR 1.03 (0.5-1.4) 12/07/16 21:53 Sodium 136 mEq/L (136-145) 12/11/16 06:00 Potassium 3.3 mEq/L (3.5-5.1) L 12/11/16 06:00 Chloride 105 mEq/L (98-107) 12/11/16 06:00 Carbon Dioxide 26.5 mEq/L (21.0-31.0) 12/11/16 06:00 Anion Gap 7.8 (7.0-16.0) 12/11/16 06:00 BUN 11 mg/dL (7-25) 12/11/16 06:00 Creatinine 1.0 mg/dL (0.7-1.3) 12/11/16 06:00 Est GFR ( Amer) TNP 12/11/16 06:00 Est GFR (Non-Af Amer) TNP 12/11/16 06:00 BUN/Creatinine Ratio 11.0 12/11/16 06:00 Glucose 103 mg/dL (70-105) 12/11/16 06:00 Whole Bld Lactic Acid 0.99 mmol/L (0.60-1.99) 12/07/16 21:53 Calcium 9.1 mg/dL (8.6-10.3) 12/11/16 06:00 Total Bilirubin 0.5 mg/dL (0.3-1.0) 12/11/16 06:00 AST 16 U/L (13-39) 12/11/16 06:00 ALT 10 U/L (7-52) 12/11/16 06:00 Alkaline Phosphatase 61 U/L (34-104) 12/11/16 06:00 Troponin I 0.03 ng/mL (0.01-0.05) 12/07/16 21:53 Total Protein 6.4 gm/dL (6.0-8.3) 12/11/16 06:00 Albumin 2.9 gm/dL (4.2-5.5) L 12/11/16 06:00 Globulin 3.5 gm/dL 12/11/16 06:00 Albumin/Globulin Ratio 0.8 (1.0-1.8) L 12/11/16 06:00 Triglycerides 77 mg/dL (<150) 12/07/16 21:53 Cholesterol 125 mg/dL (<200) 12/07/16 21:53 LDL Cholesterol Direct 89 mg/dL (75-193) 12/07/16 21:53 HDL Cholesterol 30 mg/dL (23-92) 12/07/16 21:53 TSH 1.38 uIU/ml (0.34-5.60) 12/07/16 21:53 Urine Source CLEAN C 12/08/16 13:30 Urine Color YELLOW 12/08/16 13:30 Urine Clarity CLEAR (CLEAR) 12/08/16 13:30 Urine pH 6.0 (4.6 - 8.0) 12/08/16 13:30 Ur Specific [place] 1.025 (1.005-1.030) 12/08/16 13:30 Urine Protein NEGATIVE mg/dL (NEGATIVE) 12/08/16 13:30 Urine Glucose (UA) NEGATIVE mg/dL (NEGATIVE) 12/08/16 13:30 Urine Ketones NEGATIVE mg/dL (NEGATIVE) 12/08/16 13:30 Urine Blood SMALL (NEGATIVE) H 12/08/16 13:30 Urine Nitrate NEGATIVE (NEGATIVE) 12/08/16 13:30 Urine Bilirubin NEGATIVE (NEGATIVE) 12/08/16 13:30 Urine Urobilinogen 0.2 E.U./dL (0.2 - 1.0) 12/08/16 13:30 Ur Leukocyte Esterase NEGATIVE (NEGATIVE) 12/08/16 13:30 Urine RBC 2-5 /hpf (0-5) H 12/08/16 13:30 Urine WBC 0-2 /hpf (0-5) 12/08/16 13:30 Ur Epithelial Cells RARE /lpf (FEW) 12/08/16 13:30 Uric Acid Crystals FEW /hpf (NONE SEEN) 12/08/16 13:30 Urine Bacteria FEW /hpf (NONE SEEN) 12/08/16 13:30 RPR NONREACTIVE (NONREACTIVE) 12/07/16 21:53 - Physical Exam Vitals and I&O: Vital Signs Temp 97.5 F 12/13/16 04:00 Pulse 67 12/13/16 07:46 Resp 16 12/13/16 07:46 BP 146/72 12/13/16 04:00 Pulse Ox 98 12/13/16 07:46 Intake & Output 12/12/16 12/13/16 12/13/16 18:59 06:59 18:59 Intake Total 50 700 Balance 50 700 Weight (lbs) 78.698 kg 78.698 kg Intake: Intake, IV Amount 50 Piperacillin Sodium/ 50 Tazobact 3.375 gm In Sodium Chloride 0.9% 50 ml @ 100 mls/hr IV Q8HR [facility] Rx#:[id number] Oral 700 Other: # Voids 4 # Bowel Movements 3 Active Medications: Current Medications Albuterol/Ipratropium (Duoneb Neb) 3 ml HHN Q6HRT [facility] Stop: 02/06/17 06:59 Last Admin: 12/13/16 07:46 Dose: 3 ml Albuterol/Ipratropium (Duoneb Neb) 3 ml HHN Q2H PRN PRN Reason: Wheezing Stop: 02/06/17 16:44 Amlodipine Besylate (Norvasc) 10 mg PO DAILY [facility] Stop: 02/07/17 08:59 Last Admin: 12/12/16 09:28 Dose: 10 mg Donepezil HCl (Aricept) 5 mg PO HS [facility] Stop: 02/09/17 20:59 Last Admin: 12/12/16 20:29 Dose: 5 mg Heparin Sodium (Porcine) (Heparin) 5,000 units SUBQ Q12HR [facility] Stop: 02/06/17 20:59 Last Admin: 12/12/16 20:29 Dose: 5,000 units Piperacillin Sod/Tazobactam (Sod 3.375 gm/ Sodium Chloride) 50 mls @ 100 mls/ hr IV Q8HR [facility] Stop: 02/06/17 01:54 Last Infusion: 12/12/16 14:40 Dose: Infused Azithromycin 500 mg/ Sodium (Chloride) 250 mls @ 250 mls/hr IV Q24HR [facility] Stop: 02/06/17 17:29 Last Admin: 12/12/16 17:22 Dose: 250 mls/hr Lactobacillus Rhamnosus (Culturelle) 1 each PO DAILY [facility] Stop: 02/10/17 08:59 Last Admin: 12/12/16 09:29 Dose: 1 each Lorazepam (Ativan) 1 mg IVP Q4H PRN; Protocol PRN Reason: Agitation Stop: 02/09/17 16:12 Memantine (Namenda) 5 mg PO DAILY [facility] Stop: 02/10/17 08:59 Last Admin: 12/12/16 09:29 Dose: 5 mg Miscellaneous (Vte Chemical Prophylaxis Screen/ Admission) 1 ea [facility] PRN PRN PRN Reason: PROTOCOL Stop: 02/06/17 11:44 Miscellaneous (Probiotic Screen) 1 ea MC PRN PRN PRN Reason: PROTOCOL Stop: 02/09/17 17:18 Quetiapine Fumarate (Seroquel) 25 mg PO Q6HR PRN PRN Reason: Agitation Stop: 02/10/17 09:11 General: Alert, Cooperative, No acute distress HEENT: Atraumatic, PERRLA, EOMI, Mucous membr. moist/pink Neck: Supple Cardiovascular: Regular rate, Normal S1, Normal S2 Lungs: Clear to auscultation Abdomen: Bowel sounds, Soft, Other (no guarding, no rigidity, no hepatosplenomegaly.) Extremities: Pulses (+1) Neurological: Other (broadbase gait noted.) Assessment/Plan - Assessment Assessment: Most likely underlying Alzheimer's dementia. Left lower lobe pneumonia clinically improving. Hypertension. Diffuse DJD. High risk for fall. Debility. History of CVA. Encephalopathy improved. - Plan Plan: Discharge vomiting based on psychiatrist" inpatient psychiatric hospitalization versus DC back to half-way. Continue IV antibiotic. Continue antihypertensive medication as ordered. Fall precautions. General nursing care. Antihypertensive medication. Nutritional support. PT and OT. Care plan reviewed and discussed with staff.
[2016-12-13] MEDS: Lactobacillus Rhamnosus 10 Billion CFU Capsule PO SCH (09:11)
[2016-12-13] MEDS: Azithromycin 500 MG in Sodium Chloride 0.9% 250 ML IV SCH (17:04)
--- NOTE | 2016-12-13 23:54 | Consultation ---
DATE OF CONSULTATION: 12/13/2016 HISTORY OF PRESENT ILLNESS: This is an 81-year-old male with history of cognitive impairment and dementia. On [id number], rambling, disoriented, and talking about different topics. However, staff notes he is calm, cooperative, friendly involved in physical therapy. No behavioral disturbances. No agitation. No dangerousness. Eating with prompting. ADLs with prompting. Sleeping well. Eating well. The patient notes he feels, "good." PAST PSYCHIATRIC HISTORY: Noted. SOCIAL HISTORY: The patient is coming from a long-term facility. MENTAL STATUS EXAMINATION: Stated age, fair eye contacts, speech rambling. Mood is "okay." Affect constricted. Thought processes were disoriented. No SI, no HI, no intent, no plan. No evidence of any psychotic symptoms. Insight and judgment diminished. PROVISIONAL DIAGNOSIS: Dementia, also anxiety, unspecified. MEDICAL DIAGNOSIS: Please see full H and P. The patient has been medically cleared. RECOMMENDATIONS AND PLAN: The patient seems to be stable from a psychiatric standpoint, no behavioral disturbances, no justification for inpatient hospitalization at this time. He is calm, cooperative, and redirectable. He is not hitting anybody. He is not yelling or screaming. No inpatient admission criteria. [facility]# [id number]
[2016-12-14] MEDS: Albuterol/Ipratropium Neb 3 ML AERS HHN SCH ×3 (00:53→13:59)
[2016-12-14] MEDS: Lactobacillus Rhamnosus 10 Billion CFU Capsule PO SCH (08:40)
--- NOTE | 2016-12-14 09:47 | General Progress Note ---
Subjective - Review of Systems Subjective: Patient is seen and examined. Patient denies any chest pain, shortness of breath, palpitation, dizziness, nausea, vomiting. Patient is participating in physical therapy. Patient denies any fever, chills, loss of appetite, weight loss. Discharge planning based on psychiatrist input. Objective - Results Result Diagrams: 12/11/16 06:00 12/11/16 06:00 Recent Labs: Laboratory Last Values WBC 9.0 Th/cmm (4.8-10.8) D 12/11/16 06:00 RBC 4.02 Mil/cmm (3.80-5.80) 12/11/16 06:00 Hgb 12.1 gm/dL (12.6-17.4) L 12/11/16 06:00 Hct 36.6 % (39.0-49.0) L 12/11/16 06:00 MCV 91.1 fl (80-99) 12/11/16 06:00 MCH 30.2 pg (27.0-31.0) 12/11/16 06:00 MCHC Differential 33.1 pg (28.0-36.0) 12/11/16 06:00 RDW 12.2 % (11.5-20.0) 12/11/16 06:00 Plt Count 289 Th/cmm (150-400) 12/11/16 06:00 MPV 9.8 fl 12/11/16 06:00 Neutrophils % 73.6 % (40.0-80.0) 12/11/16 06:00 Band Neutrophils % 3 % (0-10) 12/09/16 05:35 Lymphocytes % 11.2 % (20.0-50.0) L 12/11/16 06:00 Monocytes % 11.5 % (2.0-10.0) H 12/11/16 06:00 Eosinophils % 3.2 % (0.0-5.0) 12/11/16 06:00 Basophils % 0.5 % (0.0-2.0) 12/11/16 06:00 Neutrophils (Manual) 82 % (40-80) H 12/09/16 05:35 Lymphocytes 6 % (20-50) L 12/09/16 05:35 Monocytes 9 % (2-10) 12/09/16 05:35 Platelet Estimate ADEQUATE (NORMAL) 12/09/16 05:35 Platelet Morphology NORMAL (NORMAL) 12/08/16 06:57 RBC Morph Micro Appear NORMAL (NORMAL) 12/08/16 06:57 PT 10.7 SECONDS (9.5-11.5) 12/07/16 21:53 INR 1.03 (0.5-1.4) 12/07/16 21:53 Sodium 136 mEq/L (136-145) 12/11/16 06:00 Potassium 3.3 mEq/L (3.5-5.1) L 12/11/16 06:00 Chloride 105 mEq/L (98-107) 12/11/16 06:00 Carbon Dioxide 26.5 mEq/L (21.0-31.0) 12/11/16 06:00 Anion Gap 7.8 (7.0-16.0) 12/11/16 06:00 BUN 11 mg/dL (7-25) 12/11/16 06:00 Creatinine 1.0 mg/dL (0.7-1.3) 12/11/16 06:00 Est GFR ( Amer) TNP 12/11/16 06:00 Est GFR (Non-Af Amer) TNP 12/11/16 06:00 BUN/Creatinine Ratio 11.0 12/11/16 06:00 Glucose 103 mg/dL (70-105) 12/11/16 06:00 Whole Bld Lactic Acid 0.99 mmol/L (0.60-1.99) 12/07/16 21:53 Calcium 9.1 mg/dL (8.6-10.3) 12/11/16 06:00 Total Bilirubin 0.5 mg/dL (0.3-1.0) 12/11/16 06:00 AST 16 U/L (13-39) 12/11/16 06:00 ALT 10 U/L (7-52) 12/11/16 06:00 Alkaline Phosphatase 61 U/L (34-104) 12/11/16 06:00 Troponin I 0.03 ng/mL (0.01-0.05) 12/07/16 21:53 Total Protein 6.4 gm/dL (6.0-8.3) 12/11/16 06:00 Albumin 2.9 gm/dL (4.2-5.5) L 12/11/16 06:00 Globulin 3.5 gm/dL 12/11/16 06:00 Albumin/Globulin Ratio 0.8 (1.0-1.8) L 12/11/16 06:00 Triglycerides 77 mg/dL (<150) 12/07/16 21:53 Cholesterol 125 mg/dL (<200) 12/07/16 21:53 LDL Cholesterol Direct 89 mg/dL (75-193) 12/07/16 21:53 HDL Cholesterol 30 mg/dL (23-92) 12/07/16 21:53 TSH 1.38 uIU/ml (0.34-5.60) 12/07/16 21:53 Urine Source CLEAN C 12/08/16 13:30 Urine Color YELLOW 12/08/16 13:30 Urine Clarity CLEAR (CLEAR) 12/08/16 13:30 Urine pH 6.0 (4.6 - 8.0) 12/08/16 13:30 Ur Specific [place] 1.025 (1.005-1.030) 12/08/16 13:30 Urine Protein NEGATIVE mg/dL (NEGATIVE) 12/08/16 13:30 Urine Glucose (UA) NEGATIVE mg/dL (NEGATIVE) 12/08/16 13:30 Urine Ketones NEGATIVE mg/dL (NEGATIVE) 12/08/16 13:30 Urine Blood SMALL (NEGATIVE) H 12/08/16 13:30 Urine Nitrate NEGATIVE (NEGATIVE) 12/08/16 13:30 Urine Bilirubin NEGATIVE (NEGATIVE) 12/08/16 13:30 Urine Urobilinogen 0.2 E.U./dL (0.2 - 1.0) 12/08/16 13:30 Ur Leukocyte Esterase NEGATIVE (NEGATIVE) 12/08/16 13:30 Urine RBC 2-5 /hpf (0-5) H 12/08/16 13:30 Urine WBC 0-2 /hpf (0-5) 12/08/16 13:30 Ur Epithelial Cells RARE /lpf (FEW) 12/08/16 13:30 Uric Acid Crystals FEW /hpf (NONE SEEN) 12/08/16 13:30 Urine Bacteria FEW /hpf (NONE SEEN) 12/08/16 13:30 RPR NONREACTIVE (NONREACTIVE) 12/07/16 21:53 - Physical Exam Vitals and I&O: Vital Signs Temp 97.7 F 12/14/16 04:00 Pulse 101 12/14/16 08:41 Resp 16 12/14/16 07:59 BP 161/77 12/14/16 08:41 Pulse Ox 96 12/14/16 07:59 Intake & Output 12/13/16 12/14/16 12/14/16 18:59 06:59 18:59 Intake Total 600 200 Output Total 1 Balance 599 200 Weight (lbs) 78.698 kg 78.471 kg Intake: Oral 600 200 Output: Stool 1 Other: # Voids 5 2 # Bowel Movements 0 Active Medications: Current Medications Albuterol/Ipratropium (Duoneb Neb) 3 ml HHN Q6HRT ZACHARY Stop: 02/06/17 06:59 Last Admin: 12/14/16 07:59 Dose: Not Given Albuterol/Ipratropium (Duoneb Neb) 3 ml HHN Q2H PRN PRN Reason: Wheezing Stop: 02/06/17 16:44 Amlodipine Besylate (Norvasc) 10 mg PO DAILY ZACHARY Stop: 02/07/17 08:59 Last Admin: 12/14/16 08:41 Dose: 10 mg Donepezil HCl (Aricept) 5 mg PO HS ZACHARY Stop: 02/09/17 20:59 Last Admin: 12/13/16 20:23 Dose: 5 mg Heparin Sodium (Porcine) (Heparin) 5,000 units SUBQ Q12HR ZACHARY Stop: 02/06/17 20:59 Last Admin: 12/14/16 08:42 Dose: 5,000 units Lactobacillus Rhamnosus (Culturelle) 1 each PO DAILY ZACHARY Stop: 02/10/17 08:59 Last Admin: 12/14/16 08:40 Dose: 1 each Lorazepam (Ativan) 1 mg IVP Q4H PRN; Protocol PRN Reason: Agitation Stop: 02/09/17 16:12 Memantine (Namenda) 5 mg PO DAILY ZACHARY Stop: 02/10/17 08:59 Last Admin: 12/14/16 08:40 Dose: 5 mg Miscellaneous (Vte Chemical Prophylaxis Screen/ Admission) 1 ea PRN PRN PRN Reason: PROTOCOL Stop: 02/06/17 11:44 Miscellaneous (Probiotic Screen) 1 ea PRN PRN PRN Reason: PROTOCOL Stop: 02/09/17 17:18 Quetiapine Fumarate (Seroquel) 25 mg PO Q6HR PRN PRN Reason: Agitation Stop: 02/10/17 09:11 General: Alert, Cooperative, No acute distress HEENT: Atraumatic, PERRLA, EOMI, Mucous membr. moist/pink Neck: Supple Cardiovascular: Regular rate, Normal S1, Normal S2 Lungs: Clear to auscultation Abdomen: Bowel sounds, Soft, Other (no guarding, no rigidity, no hepatosplenomegaly.) Extremities: Pulses (+1) Neurological: Other (broadbase gait noted.) Assessment/Plan - Assessment Assessment: Most likely underlying Alzheimer's dementia. Left lower lobe pneumonia clinically improving. Hypertension. Diffuse DJD. High risk for fall. Debility. History of CVA. Encephalopathy improved. - Plan Plan: Stable for DC to ECF. DC 1;1 sitter. Continue IV antibiotic. Continue antihypertensive medication as ordered. Fall precautions. General nursing care. Antihypertensive medication. Nutritional support. PT and OT. Care plan reviewed and discussed with staff. Nutritional Asmnt/Malnutr-PDOC - Dietary Evaluation Malnutrition Findings (Please click <Entered> for more info): Nutritional Asmnt/Malnutrition Start: 12/13/16 16: 35 Text: Status: Complete Freq: Document 12/13/16 16:35 GSUN (Rec: 12/13/16 16:48 [place] [id number]) Nutritional Asmnt/Malnutrition Patient General Information Nutritional Screening Moderate Risk Screening Diagnosis Cough, congestion, left lower lobe atelectasis vs infiltrate , agitations Pertinent Medical Hx/Surgical Hx Dementia, altered mental status, fall, penumonia, HTN, melanoma, Alzheimer's, DJD, peripheral vascular disease, prerenal azotemia, mild protein calorie malnutrition, UTI Subjective Information 81 year old male from SNF. Pt noted with poor PO intake on adm, stated several times to [facility] staff that he is unable to finish food provided, avg PO intake 100% of meals past 3 days, meeting nutritional needs. Pt was talkative and pelasant, however confusion noted. Pt is overall thin, mild wasting to chest. Pt is fixated on idea that he could only have 5 food tiems for every meal. RD assured pt several times that he may have as many food items desired, balanced nutrition and weight gain prefered. Pt is able to ambulate with PT. Current Diet Order/ Nutrition Support [facility] soft chopped Pertinent Medications Culturelle, Seroquel Pertinent Labs Reviewed. Nutritional Hx/Data Height 1.83 m Height (Calculated Centimeters) 182.9 Current Weight (lbs) 78.698 kg Weight (Calculated Kilograms) 78.7 Weight (Calculated Grams) 28781.3 [place] Body Weight 178 Weight Status Approriate GI Symptoms Skin Integrity/Comment: Rey 16. 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 Problem Problem No nutrition problem at this time. Intervention/Recommendation Comments 1. Continue with current diet order. Avg PO itnake is adequate. 2. Pt is fixated on only eating 5 [address] meal[address] RD explained balanced nutrition and weight gain prefered. Nursing staff to remind pt as able. Expected Outcomes/Goals Expected Outcomes/Goals 1. PO intake contitnue to meet at least 75% of estimated nutritional needs.
== END 2016-12-14 17:30 | DRG 177 ==
LOC: ER 21:40 → MSI 12-08 00:52
PROVIDERS: ADMIT Internal Medicine; ATTEND Internal Medicine
DX: J69.0 Pneumonitis due to inhalation of food and vomit (principal); G93.40 Encephalopathy, unspecified; C43.9 Malignant melanoma of skin, unspecified; E44.1 Mild protein-calorie malnutrition; J44.9 Chronic obstructive pulmonary disease, unspecified; G30.9 Alzheimer's disease, unspecified; F02.80 Dementia in other diseases classified elsewhere, unspecified severity, without behavioral disturbance, psychotic disturbance, mood disturbance, and anxiety; I10 Essential (primary) hypertension; M19.90 Unspecified osteoarthritis, unspecified site; R62.7 Adult failure to thrive; E78.5 Hyperlipidemia, unspecified; F20.9 Schizophrenia, unspecified; I73.9 Peripheral vascular disease, unspecified; R32 Unspecified urinary incontinence; F41.9 Anxiety disorder, unspecified; Z68.23 Body mass index [BMI] 23.0-23.9, adult; Z91.81 History of falling; Z86.73 Personal history of transient ischemic attack (TIA), and cerebral infarction without residual deficits
CPT/HCPCS: 36415-UA; 71010-TC; 71250-TC; 80053-TC; 80061-TC; 81001-TC; 83605; 84443-TC; 84484-TC; 85007-TC; 85025-TC; 85027-TC; 85610-TC; 86592-TC; 87070; 93005; 94640; 94760; 97530; J0456; J0696; J1644; J2060; J2543; J3370; J7030; J7040; J7070; X3401; X3904; Z7610